=== PATIENT | male | born 1955 | race Caucasian/White ===

== ENCOUNTER → 2020-12-02 | Day surgery (SDC) | payer BC ==
[~2020-12-02] MED LIST: Ketamine 200 MG/20 ML MDV ONE; Lactated Ringers 1,000 ML IV SCH; Propofol 200 MG/20 ML SDV ONE; fentaNYL 100 MCG/2 ML SDV ONE
--- NOTE | 2020-12-03 08:44 | OR ---
DATE OF OPERATION: 12/02/2020 PREOPERATIVE DIAGNOSIS: SCREENING COLONOSCOPY. POSTOPERATIVE DIAGNOSIS: SCREENING COLONOSCOPY. SURGEON: Silvino Cronin MD PROCEDURE: FULL-LENGTH COLONOSCOPY WITH FORCEPS POLYP REMOVAL X3. ANESTHESIA: MAC. COMPLICATIONS: None. SPECIMEN: Three small sessile polyps, each 3 mm or less. FINDINGS: 1. Full-length colonoscopy. 2. Mild sigmoid diverticulosis. 3. Three left-sided sessile polyps, all 3 mm or less. RECOMMENDATIONS: Followup colonoscopy in 5 years. INDICATIONS: Mr. Harrell was in for a routine physical. It has been over 10 years since his last screening colonoscopy. He agreed to procedure. DESCRIPTION OF PROCEDURE: The patient was prepped and draped, placed in the left lateral decubitus position. A lubricated Olympus colonoscope was inserted and easily advanced to the cecum. Direct visualization of the ileocecal valve and appendiceal orifice was accomplished. The bowel prep was adequate. Upon withdrawal of the scope, the cecum, ascending and transverse colon were completely benign. Right at the splenic flexure, the patient had a small sessile polyp measuring approximately 3 mm, it was removed in its entirety with a forceps. The rest of the descending colon was unremarkable. In the mid-to- distal sigmoid colon, the patient had a second small sessile polyp also removed with a forceps. There was a third one in the rectosigmoid junction removed without any difficulty with a forceps biopsy x1. The rest of the rectosigmoid junction and rectal vault appeared benign. Retroflexion of the scope in the rectum showed no anal lesions. Air was suctioned. The scope removed without complication. BEV/JALYN /[id number]
== END ==
LOC: CC.SDS 08:24
PROVIDERS: ATTEND Family Medicine
DX: Z12.11 Encounter for screening for malignant neoplasm of colon (principal); D12.5 Benign neoplasm of sigmoid colon; D12.3 Benign neoplasm of transverse colon; K62.89 Other specified diseases of anus and rectum; K57.30 Diverticulosis of large intestine without perforation or abscess without bleeding; N40.0 Benign prostatic hyperplasia without lower urinary tract symptoms; N52.9 Male erectile dysfunction, unspecified; E78.5 Hyperlipidemia, unspecified; N43.40 Spermatocele of epididymis, unspecified; M10.9 Gout, unspecified; Z79.899 Other long term (current) drug therapy; Z98.890 Other specified postprocedural states
CPT/HCPCS: 00812; J2704; J3010